=== PATIENT | female | born 1975 | race Caucasian/White ===

== ENCOUNTER 2018-11-10 09:17 | Emergency (ER) | payer MEDICAID ==
[2018-11-10] MEDS ORDERED: HYDROcod/ACETAM 5/325 MG TABLET PO STA (09:41)
[2018-11-10 10:21] LABS: BASOPHILS # (AUTO) 0.1 10^3/uL (0.0-0.1); BASOPHILS % (AUTO) 0.8 %; EOSINOPHILS # (AUTO) 0.1 10^3/uL (0.0-0.7); EOSINOPHILS % (AUTO) 1.2 %; LYMPHOCYTES # (AUTO) 1.8 10^3/uL (1.5-3.5); LYMPHOCYTES % (AUTO) 24.8 %; MEAN CORPUSCULAR HEMOGLOBIN 32.9 pg (27.0-31.0); MEAN CORPUSCULAR HGB CONC 32.3 g/dL (32.0-36.0); MEAN CORPUSCULAR VOLUME 101.6 fL (81.0-99.0); MEAN PLATELET VOLUME 9.1 fL (7.9-10.8); NEUTROPHILS # (AUTO) 4.4 10^3/uL (1.5-6.6); NEUTROPHILS % (AUTO) 59.8 %; PLT - PLATELET COUNT 220 10^3/uL (130-450); RED BLOOD COUNT 3.65 10^6/uL (4.20-5.40); RED CELL DISTRIBUTION WIDTH 14.1 % (12.0-15.0); WHITE BLOOD COUNT 7.4 x10^3/uL (4.8-10.8)
--- NOTE | 2018-11-10 10:22 | XRAY Report ---
Reason: swollen legs Procedure Date: 11/10/2018 Accession Number: [id number] / [id number] Procedure: XR - Chest 1 View X-Ray CPT Code: 30483 FULL RESULT: EXAM: CHEST RADIOGRAPHY EXAM DATE: 11/10/2018 10:08 AM. CLINICAL HISTORY: Swollen legs. COMPARISON: None. TECHNIQUE: Upright AP view. FINDINGS: Lungs/Pleura: No focal opacities evident. No interstitial abnormality or pulmonary vascular congestion. No pleural effusion. No pneumothorax. Mediastinum: Heart size is normal. Small hiatal hernia. Other: None. IMPRESSION: 1. No evidence of active cardiopulmonary disease. 2. Small hiatal hernia. RADIA
[2018-11-10 11:02] LABS: ALBUMIN 2.8 g/dL (3.2-5.5); ALBUMIN/GLOBULIN RATIO 1.1 (1.0-2.2); BILIRUBIN,TOTAL 0.4 mg/dL (0.2-1.0); CALCIUM 8.4 mg/dL (8.5-10.3); CREATININE 0.7 mg/dL (0.4-1.0); TOTAL PROTEIN 5.4 g/dL (6.7-8.2)
[2018-11-10 11:41] VITALS: BP 103/67
--- NOTE | 2018-11-10 12:03 | Ultrasound Report ---
Reason: swollen lower legs; just off 5 day bus ride Procedure Date: 11/10/2018 Accession Number: [id number] / [id number] Procedure: US - Duplex Ext Veins Bilateral CPT Code: FULL RESULT: EXAM: BILATERAL LOWER EXTREMITY VENOUS ULTRASOUND EXAM DATE: 11/10/2018 11:38 AM. CLINICAL HISTORY: Swollen lower legs; just off 5 day bus ride. COMPARISON: None. TECHNIQUE: Real-time sonographic vascular imaging was performed by the can patcher through the lower extremities utilizing both color-flow and Doppler spectral analysis. Multiple insurance claims representative static images were saved for review. FINDINGS: Right: Common Femoral Vein (CFV): Normal. CFV-GSV Junction: Normal. Profunda Femoral Vein (PFV): Normal. Femoral Vein (FV) Prox: Normal. Femoral Vein (FV) Mid: Normal. Femoral Vein (FV) Dist: Normal. Popliteal Vein: Normal. Posterior Tibial Veins: Normal. Peroneal Veins: Normal. Left: Common Femoral Vein (CFV): Normal. CFV-GSV Junction: Normal. Profunda Femoral Vein (PFV): Normal. Femoral Vein (FV) Prox: Normal. Femoral Vein (FV) Mid: Normal. Femoral Vein (FV) Dist: Normal. Popliteal Vein: Normal. Posterior Tibial Veins: Normal. Peroneal Veins: Normal. Other: None. IMPRESSION: No evidence for deep venous thrombosis bilaterally. RADIA
[2018-11-10] MEDS ORDERED: NAPROXEN 250 MG TABLET PO STA (12:09)
--- NOTE | 2018-11-10 12:12 | ED Physician Documentation ---
PD HPI LOWER EXT INJURY - Stated complaint Stated Complaint: LEGS SWOLLEN - Chief complaint Chief Complaint: Ext Problem - History obtained from History obtained from: Patient - History of Present Illness PD HPI LOW EXT INJURY LOCATION: Both, Lower leg (has been on 5 day bus ride from [place] to here, and has noted swelling in both lower legs. No dyspnea nor chest pain. Denies prior similar.) Type of injury: No: Fall, Twist Timing - onset: How many days ago (5) Timing - duration: Days (5) Timing - details: Gradual onset, Still present Associated symptoms: Swelling. No: Weakness, Numbness Contributing factors: No: Anticoagulated Similar symptoms before: Has not had sx before Recently seen: Not recently seen Review of Systems Constitutional: denies: Fever, Chills, Myalgias Nose: denies: Rhinorrhea / runny nose, Congestion Throat: denies: Sore throat Cardiac: reports: Pedal edema. 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 - Present Medications Home Medications: Ambulatory Orders Medication Instructions Recorded Confirmed Naproxen 500 mg PO BID #20 tablet 11/10/18 - Allergies Allergies/Adverse Reactions: Allergies Allergy/AdvReac Type Severity Reaction Status Date / Time ondansetron [From Zofran] Allergy Unknown Verified 11/10/18 09:35 promethazine [From Phenergan] Allergy Unknown Verified 11/10/18 09:35 tramadol Allergy Unknown Verified 11/10/18 09:35 - Social History Does the pt smoke?: No Smoking Status: Never smoker PD ED PE NORMAL - Vitals Vital signs reviewed: Yes - General General: Alert and oriented X 3, No acute distress, Well developed/nourished - HEENT HEENT: Pharynx benign - Neck Neck: Supple, no meningeal sign, No adenopathy - Cardiac Cardiac: RRR, No murmur - Respiratory Respiratory: Clear bilaterally - Abdomen Abdomen: Soft, Non tender - Derm Derm: Normal color, Warm and dry - Extremities Extremities: No tenderness to palpate, Normal ROM s pain, No calf tenderness / cord, Other (1+ edema pitting in both lower legs from knees down to ankles. ) - Neuro Neuro: Alert and oriented X 3, No motor deficit, Normal speech Results - Vitals Vitals: Vital Signs - 24 hr 11/10/18 11/10/18 09:28 11:39 Temperature 36.4 C L Heart Rate 92 79 Respiratory 19 19 Rate Blood Pressure 96/61 103/67 O2 Saturation 100 99 Oxygen O2 Source Room air - Labs Labs: Laboratory Tests 11/10/18 11/10/18 11/10/18 10:15 10:15 10:15 WBC 7.4 RBC 3.65 L Hgb 12.0 Hct 37.1 MCV 101.6 H MCH 32.9 H MCHC 32.3 RDW 14.1 Plt Count 220 MPV 9.1 Neut # (Auto) 4.4 Lymph # (Auto) 1.8 [place] # (Auto) 1.0 Eos # (Auto) 0.1 Baso # (Auto) 0.1 Absolute Nucleated RBC 0.00 Nucleated RBC % 0.0 Sodium 140 Potassium 4.5 Chloride 108 Carbon Dioxide 24 Anion Gap 8.0 BUN 11 Creatinine 0.7 Estimated GFR (MDRD) 91 Glucose 81 Calcium 8.4 L Magnesium 2.0 Iron 66 TIBC 216 L % Saturation 31 Transferrin 154 L Total Bilirubin 0.4 AST 30 ALT 25 Alkaline Phosphatase 89 B-Natriuretic Peptide 101 H Total Protein 5.4 L Albumin 2.8 L Globulin 2.6 Albumin/Globulin Ratio 1.1 Lipase 29 TSH 11/10/18 10:15 WBC RBC Hgb Hct MCV MCH MCHC RDW Plt Count MPV Neut # (Auto) Lymph # (Auto) [place] # (Auto) Eos # (Auto) Baso # (Auto) Absolute Nucleated RBC Nucleated RBC % Sodium Potassium Chloride Carbon Dioxide Anion Gap BUN Creatinine Estimated GFR (MDRD) Glucose Calcium Magnesium Iron TIBC % Saturation Transferrin Total Bilirubin AST ALT Alkaline Phosphatase B-Natriuretic Peptide Total Protein Albumin Globulin Albumin/Globulin Ratio Lipase TSH 1.43 - Rads (name of study) chest xray Radiology: Prelim report reviewed (no CHF), EMP read contemporaneously duplex legs Radiology: Prelim report reviewed (no DVT), EMP read contemporaneously PD MEDICAL DECISION MAKING - ED course Complexity details: reviewed results (CXR and Duplex studies are normal. ), re- evaluated patient, considered differential, d/w patient Departure - Departure Disposition: 01 Home, Self Care Clinical Impression: Leg edema Clinical Impression: (Ruled Out): Deep vein thrombosis Condition: Stable Record reviewed to determine appropriate education?: Yes Instructions: ED Edema Legs Bilateral Prescriptions: Naproxen 500 mg PO BID #20 tablet Comments: Your ultrasound shows no signs of clots. Your blood tests are good. You are not anemic. Your electrolytes and kidney function are good. There is no signs of congestive failure on your chest x-ray or blood tests. Looks like the swelling in your legs are just from having them in the downward position for the several days while you are traveling. Elevate and rest them. Use Mateo wrap or compression socks. You can use some anti-inflammatories for the discomfort. This should improve over the next couple of days now that you are not traveling. Discharge Date/Time: 11/10/18 12:22
== END 2018-11-10 12:22 | disposition home or self-care (01) ==
LOC: ED 09:17
DX: R60.0 Localized edema (principal); K44.9 Diaphragmatic hernia without obstruction or gangrene
CPT/HCPCS: 36415; 71045; 83540; 83690; 83735; 83880; 84466; 93970; 99283; 99284; A9270; 80053; 84443; 85025

== ENCOUNTER 2018-12-02 11:55 | Outpatient (CLI) | payer MEDICAID | END 2018-12-02 11:56 | disposition critical access hospital (66) | LOC: EMS 11:55 | PROVIDERS: ATTEND Surgery | DX: R68.84 Jaw pain (principal); R51 Headache; Y04.8XXA Assault by other bodily force, initial encounter | CPT/HCPCS: A0425; A0429; A0999 ==

== ENCOUNTER 2018-12-02 12:19 | Emergency (ER) | payer MEDICAID ==
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
[2018-12-02] MEDS ORDERED: IBUPROFEN 600 MG TABLET PO STA (12:58)
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
--- NOTE | 2018-12-02 14:24 | XRAY Report ---
Reason: deformity of 4th finger Procedure Date: 12/02/2018 Accession Number: [id number] / [id number] Procedure: XR - Finger(s) LT CPT Code: FULL RESULT: EXAM: LEFT FOURTH DIGIT RADIOGRAPHY EXAM DATE: 12/02/2018 02:06 PM. CLINICAL HISTORY: Deformity of 4th finger. COMPARISON: None. TECHNIQUE: 3 views. FINDINGS: Bones: There is a comminuted mildly displaced fracture of fourth proximal phalanx. There is evidence of bony remodeling consistent with subacute fracture. Joints: Normal. No subluxations. Soft Tissues: There is soft tissue swelling about the proximal fourth digit. IMPRESSION: 1. Comminuted fourth proximal phalangeal fracture appears subacute. RADIA
[2018-12-02 14:57] LABS: BILIRUBIN,URINE NEGATIVE (NEGATIVE); GLUCOSE, URINE (UA) NEGATIVE (NEGATIVE); KETONES,URINE (UA) NEGATIVE (NEGATIVE); LEUKOCYTE ESTERASE, URINE NEGATIVE (NEGATIVE); NITRITE,URINE NEGATIVE (NEGATIVE); OCCULT BLOOD,URINE NEGATIVE (NEGATIVE); PH,URINE 6.5 PH (5.0-7.5); PROTEIN,URINE NEGATIVE (NEGATIVE); UROBILINOGEN,URINE 1 (NORMAL) E.U./dL (NORMAL)
[2018-12-02 14:58] LABS: CLARITY,URINE CLEAR (CLEAR)
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
[2018-12-02] MEDS ORDERED: HYDROcod/ACETAM 5/325 MG TABLET PO STA (15:28)
[2018-12-02] MEDS ORDERED: HYDROcod/ACET 5/325 Prepack 4 PO STA (19:40)
[2018-12-02 20:00] VITALS: BP 127/67
== END 2018-12-02 20:00 | disposition home or self-care (01) ==
LOC: EDUNIT# → EDBD → ED 12:19
DX: S02.641A Fracture of ramus of right mandible, initial encounter for closed fracture (principal); Y04.2XXA Assault by strike against or bumped into by another person, initial encounter; S62.615 Displaced fracture of proximal phalanx of left ring finger; W10.9XXD Fall (on) (from) unspecified stairs and steps, subsequent encounter; R60.0 Localized edema
CPT/HCPCS: 70110; 70486; 73140; 81003; 99284; A9270; 81001; 87086

== ENCOUNTER 2018-12-12 22:54 | Outpatient (CLI) | payer MEDICAID | END 2018-12-12 22:55 | disposition critical access hospital (66) | LOC: EMS 22:54 | PROVIDERS: ATTEND Surgery | DX: R42 Dizziness and giddiness (principal); R11.0 Nausea; R53.1 Weakness | CPT/HCPCS: A0425; A0429; A0999 ==

== ENCOUNTER 2018-12-12 23:07 | Emergency (ER) | payer MEDICAID ==
[2018-12-13 00:40] LABS: MUDS CUTOFF CONCENTRATIONS CUTOFF CONC BELOW:
[2018-12-13 00:42] LABS: BILIRUBIN,URINE NEGATIVE (NEGATIVE); CLARITY,URINE CLEAR (CLEAR); GLUCOSE, URINE (UA) NEGATIVE (NEGATIVE); KETONES,URINE (UA) NEGATIVE (NEGATIVE); LEUKOCYTE ESTERASE, URINE NEGATIVE (NEGATIVE); NITRITE,URINE NEGATIVE (NEGATIVE); OCCULT BLOOD,URINE NEGATIVE (NEGATIVE); PH,URINE 6.5 PH (5.0-7.5); PROTEIN,URINE NEGATIVE (NEGATIVE); UROBILINOGEN,URINE 0.2 (NORMAL) E.U./dL (NORMAL)
[2018-12-13 00:51] LABS: AMPHETAMINE SCREEN,URINE POSITIVE (NEGATIVE); BENZODIAZEPINES SCREEN, URINE NEGATIVE (NEGATIVE); COCAINE SCREEN URINE NEGATIVE (NEGATIVE); METHADONE SCREEN, URINE NEGATIVE (NEGATIVE); METHAMPHETAMINES SCREEN, URINE POSITIVE (NEGATIVE); OPIATE SCREEN, URINE NEGATIVE (NEGATIVE); OXYCODONE SCREEN, URINE NEGATIVE (NEGATIVE); PROPOXYPHENE SCREEN, URINE NEGATIVE (NEGATIVE); TRICYCLIC ANTIDEPRESSANT,URINE NEGATIVE (NEGATIVE)
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
[2018-12-13] MEDS ORDERED: MECLIZINE 12.5 MG TABLET PO STA (01:12)
[2018-12-13 01:23] LABS: BASOPHILS # (AUTO) 0.1 10^3/uL (0.0-0.1); EOSINOPHILS # (AUTO) 0.1 10^3/uL (0.0-0.7); EOSINOPHILS % (AUTO) 1.6 %; HGB - HEMOGLOBIN 12.9 g/dL (12.0-16.0); LYMPHOCYTES # (AUTO) 2.4 10^3/uL (1.5-3.5); LYMPHOCYTES % (AUTO) 33.4 %; MEAN CORPUSCULAR HEMOGLOBIN 33.2 pg (27.0-31.0); MEAN CORPUSCULAR HGB CONC 33.5 g/dL (32.0-36.0); MEAN CORPUSCULAR VOLUME 99.2 fL (81.0-99.0); MEAN PLATELET VOLUME 9.4 fL (7.9-10.8); MONOCYTES # (AUTO) 0.7 10^3/uL (0.0-1.0); MONOCYTES % (AUTO) 9.3 %; NEUTROPHILS # (AUTO) 3.9 10^3/uL (1.5-6.6); NEUTROPHILS % (AUTO) 54.4 %; PLT - PLATELET COUNT 245 10^3/uL (130-450); RED BLOOD COUNT 3.88 10^6/uL (4.20-5.40); RED CELL DISTRIBUTION WIDTH 12.7 % (12.0-15.0); WHITE BLOOD COUNT 7.1 x10^3/uL (4.8-10.8)
[2018-12-13 01:31] LABS: CALCIUM 9.3 mg/dL (8.5-10.3); CREATININE 0.8 mg/dL (0.4-1.0)
[2018-12-13 02:40] VITALS: BP 105/46
== END 2018-12-13 02:59 | disposition home or self-care (01) ==
LOC: EDBD → EDUNIT# → ED 23:07
DX: R42 Dizziness and giddiness (principal); R40.0 Somnolence; Z59.0 Homelessness
CPT/HCPCS: 36415; 80048; 80306; 81003; 85025; 99283; A9270; 81001; 87086

== ENCOUNTER 2019-01-20 10:00 | Emergency (ER) | payer MEDICAID ==
[2019-01-20 10:20] VITALS: BP 108/78
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
[2019-01-20] MEDS ORDERED: DEXAMETHASONE 10 MG/ML VIAL PO STA (12:05)
[2019-01-20] MEDS ORDERED: CHERRY SYRUP 10 ML UDC PO ONE (12:05)
--- NOTE | 2019-01-20 13:12 | XRAY Report ---
Reason: pain in hip joint Procedure Date: 01/20/2019 Accession Number: [id number] / [id number] Procedure: XR - Hip w/Pelvis 2-3V LT CPT Code: FULL RESULT: EXAM: LEFT HIP RADIOGRAPHY EXAM DATE: 01/20/2019 12:37 PM. CLINICAL HISTORY: Pain in hip joint. COMPARISON: None. TECHNIQUE: 2 views. FINDINGS: Bones: Nondisplaced fractures of the superior and inferior pubic rami on the left. Joints: Normal. No dislocation. The hip joint space is preserved. Soft Tissues: Normal. No soft tissue swelling. IMPRESSION: Nondisplaced fractures of the superior and inferior pubic rami on the left. RADIA
--- NOTE | 2019-01-20 13:12 | XRAY Report ---
Reason: ? FB in soft tissue heal Procedure Date: 01/20/2019 Accession Number: [id number] / [id number] Procedure: XR - Foot 3 View RT CPT Code: FULL RESULT: EXAM: RIGHT FOOT RADIOGRAPHY EXAM DATE: 01/20/2019 12:39 PM. CLINICAL HISTORY: Possible foreign body in soft tissue heel. Right foot pain for 1 week. No known trauma. COMPARISON: None. TECHNIQUE: 3 views. FINDINGS: Bones: Normal. No fractures or bone lesions. Joints: Normal. No subluxations. Soft Tissues: No definite radiopaque foreign body seen in the heel. No soft tissue gas is identified. IMPRESSION: No radiopaque foreign bodies identified in the soft tissues of the heel. RADIA
[2019-01-20] MEDS ORDERED: KETOROLAC 60 MG/2 ML VIAL IM STA (14:22)
[2019-01-20] MEDS ORDERED: HYDROcod/ACETAM 5/325 MG TABLET PO STA (15:26)
== END 2019-01-20 16:07 | disposition home or self-care (01) ==
LOC: ED 10:00
DX: S32.592A Other specified fracture of left pubis, initial encounter for closed fracture (principal); X58.XXXA Exposure to other specified factors, initial encounter; H66.003 Acute suppurative otitis media without spontaneous rupture of ear drum, bilateral; B07.0 Plantar wart; Z59.0 Homelessness
CPT/HCPCS: 73502; 73630; 96372; 99283; 99284; A9270